=== PATIENT | female | born 1955 | race Caucasian/White ===

== ENCOUNTER 2017-11-05 09:21 | Outpatient (CLI) | payer OTHER | END 2017-11-05 14:32 | disposition home or self-care (01) | LOC: TOM 09:21 | DX: R10.11 Right upper quadrant pain (principal); K80.00 Calculus of gallbladder with acute cholecystitis without obstruction ==

== ENCOUNTER 2018-09-10 17:39 | Emergency (ER) | payer OTHER ==
[~2018-09-10] VITALS: Ht 170.2 cm; Wt 86.2 kg
[2018-09-10] MEDS ORDERED: ZOLOFT50 MG (18:00)
[2018-09-10] MEDS ORDERED: ATACAND16 MG (18:00)
[2018-09-10] MEDS ORDERED: AMBIEN5 MG (18:00)
[2018-09-10] MEDS ORDERED: XANAX1 MG (18:01)
[2018-09-10] MEDS ORDERED: JANUMET 50-1,01 EACH (18:01)
[2018-09-10] MEDS ORDERED: ZOCOR20 MG (18:01)
== END 2018-09-10 23:26 | disposition home or self-care (01) ==
LOC: ER 17:39
DX: K52.89 Other specified noninfective gastroenteritis and colitis (principal); N20.0 Calculus of kidney; K57.90 Diverticulosis of intestine, part unspecified, without perforation or abscess without bleeding; N39.0 Urinary tract infection, site not specified

== ENCOUNTER 2020-08-09 14:15 | Outpatient (CLI) | payer OTHER ==
[~2020-08-09 14:15] MED LIST: AMBIEN5 MG; ATACAND16 MG; JANUMET 50-1,01 EACH; XANAX1 MG; ZOCOR20 MG; ZOLOFT50 MG
== END 2020-08-09 14:27 | disposition home or self-care (01) ==
LOC: MRI 14:15
PROVIDERS: ATTEND Anesthesiology Pain Medicine
DX: M50.323 Other cervical disc degeneration at C6-C7 level (principal)
CPT/HCPCS: 72141

== ENCOUNTER 2020-08-10 09:32 | Outpatient (CLI) | payer OTHER | END 2020-08-10 09:45 | disposition home or self-care (01) | LOC: SONOGRAMA 09:32 | PROVIDERS: ATTEND Anesthesiology Pain Medicine | DX: M25.561 Pain in right knee (principal) ==